=== PATIENT | male | born 1960 | race Caucasian/White ===

== ENCOUNTER → 2023-10-25 07:32 | Outpatient (REF) | payer BC, SELFPAY ==
[2023-10-25 08:52] LABS: % Basophils 0.4 % (0-2); % Eosinophils 0.7 % (0-6); % Immature Granulocytes 0.4 % (0-0.5); % Lymphocytes 30.5 % (20.5-51.1); % Monocytes 11.9 % (1.7-9.3); % Neutrophils 56.1 % (42.2-75.2); Absolute Eosinophils 0.1 10^3/uL (0-0.7); Absolute Lymphocytes 2.3 10^3/uL (1.2-3.4); Absolute Monocytes 0.9 10^3/uL (0.1-0.6); Absolute Neutrophils 4.2 10^3/uL (1.4-6.5); Hematocrit 38.8 % (39.0-52.0); Hemoglobin 13.9 g/dL (13.0-18.0); Mean Corp Hgb Conc. 35.8 g/dL (33.0-37.0); Mean Corpuscular Hgb 31.9 pg (27.0-31.0); Mean Platelet Volume 9.2 fL (7.4-10.4); Nucleated Red Blood Cells % 0 % (-); Platelet Count 254 10^3/uL (130-400); Red Blood Cell Count 4.36 10^6/uL (4.70-6.10); White Blood Cell Count 7.5 10^3/uL (4.8-10.8)
[2023-10-25 09:00] LABS: ALT (SGPT) 71 U/L (0-50); AST (SGOT) 52 U/L (17-59); Albumin 4.7 g/dl (3.5-5.0); Alkaline Phosphatase 82 U/L (38-126); Blood Urea Nitrogen 21 mg/dl (9-20); Calcium 9.1 mg/dl (8.4-10.2); Carbon Dioxide 27 mmol/L (22-30); Chloride 103 mmol/L (98-107); Creatine Phosphokinase 157 U/L (55-170); Glucose 98 mg/dl (70-99); HDL Cholesterol 58 mg/dl; LDL Cholesterol, Calculated 101 mg/dl; Potassium 4.2 mmol/L (3.5-5.1); Sodium 136 mmol/L (135-145); Total Bilirubin 1.3 mg/dl (0.2-1.3); Total Cholesterol 179 mg/dl (50-199); Total Protein 6.9 g/dl (6.3-8.2); Triglyceride 101 mg/dl (10-149); Very Low Density Lipoprotein 20 mg/dl (0-30); eGFR > 60.00
[2023-10-25 09:09] LABS: Erythrocyte Sed Rate 8 mm/hour (0-20)
[2023-10-25 10:04] LABS: C-Reactive Protein < 5.00 mg/L (0.0-10.00)
[2023-10-25 10:37] LABS: PSA, Total - Screen 1.14 ng/ml (0.0-4.0)
[2023-10-25 10:56] LABS: Vitamin B12 230 pg/ml (239-931)
== END ==
LOC: REG 07:32
PROVIDERS: ATTENDING PHYSICIAN Family Medicine
DX: I10 Essential (primary) hypertension (principal); E53.8 Deficiency of other specified B group vitamins; Z12.5 Encounter for screening for malignant neoplasm of prostate; I73.00 Raynaud's syndrome without gangrene; K58.0 Irritable bowel syndrome with diarrhea
CPT/HCPCS: 36415; 80053; 80061; 82550; 82607; 85025; 85652; 86140; G0103

== ENCOUNTER → 2024-01-25 06:55 | Outpatient (REF) | payer BC, SELFPAY ==
[2024-01-25 09:51] LABS: Vitamin B12 413 pg/ml (239-931)
== END ==
LOC: REG 06:55
PROVIDERS: ATTENDING PHYSICIAN Family Medicine
DX: E53.8 Deficiency of other specified B group vitamins (principal)
CPT/HCPCS: 36415; 82607

== ENCOUNTER → 2024-02-04 07:47 | Outpatient (REF) | payer BC, SELFPAY ==
[2024-02-04 08:37] LABS: % Basophils 0.3 % (0-2); % Eosinophils 0.9 % (0-6); % Immature Granulocytes 0.3 % (0-0.5); % Lymphocytes 26.3 % (20.5-51.1); % Monocytes 10.3 % (1.7-9.3); % Neutrophils 61.9 % (42.2-75.2); Absolute Eosinophils 0.1 10^3/uL (0-0.7); Absolute Lymphocytes 2.7 10^3/uL (1.2-3.4); Absolute Monocytes 1.1 10^3/uL (0.1-0.6); Absolute Neutrophils 6.4 10^3/uL (1.4-6.5); Hematocrit 41.8 % (39.0-52.0); Hemoglobin 14.6 g/dL (13.0-18.0); Mean Corp Hgb Conc. 34.9 g/dL (33.0-37.0); Mean Corpuscular Hgb 31.8 pg (27.0-31.0); Mean Corpuscular Volume 91.1 fL (80.0-94.0); Mean Platelet Volume 9.5 fL (7.4-10.4); Nucleated Red Blood Cells % 0 % (-); Platelet Count 283 10^3/uL (130-400); Red Blood Cell Count 4.59 10^6/uL (4.70-6.10); Red Cell Dist. Width 12.3 % (11.5-14.5); White Blood Cell Count 10.4 10^3/uL (4.8-10.8)
[2024-02-04 09:20] LABS: Erythrocyte Sed Rate 10 mm/hour (0-20)
[2024-02-04 09:59] LABS: ALT (SGPT) 63 U/L (0-50); AST (SGOT) 46 U/L (17-59); Albumin 5.2 g/dl (3.5-5.0); Alkaline Phosphatase 88 U/L (38-126); Blood Urea Nitrogen 19 mg/dl (9-20); Calcium 9.7 mg/dl (8.4-10.2); Carbon Dioxide 24 mmol/L (22-30); Chloride 103 mmol/L (98-107); Glucose 95 mg/dl (70-99); Potassium 4.2 mmol/L (3.5-5.1); Sodium 140 mmol/L (135-145); Total Bilirubin 0.6 mg/dl (0.2-1.3); Total Protein 7.8 g/dl (6.3-8.2); eGFR > 60.00
[2024-02-04 10:04] LABS: Free T4 1.22 ng/dl (0.78-2.19)
== END ==
LOC: REG 07:47
PROVIDERS: ATTENDING PHYSICIAN Family Medicine
DX: K58.9 Irritable bowel syndrome, unspecified (principal); R63.4 Abnormal weight loss
CPT/HCPCS: 36415; 80053; 84439; 85025; 85652; 86618

== ENCOUNTER → 2024-03-06 07:19 | Outpatient (REF) | payer BC, SELFPAY ==
[2024-03-06 09:33] LABS: ALT (SGPT) 64 U/L (0-50); AST (SGOT) 50 U/L (17-59); Albumin 5.4 g/dl (3.5-5.0); Alkaline Phosphatase 86 U/L (38-126); Creatine Phosphokinase 98 U/L (55-170); Direct Bilirubin 0.4 mg/dl (0.0-0.4); Iron 118 ug/dl (49-181); Total Bilirubin 0.9 mg/dl (0.2-1.3); Total Protein 7.7 g/dl (6.3-8.2)
[2024-03-06 09:42] LABS: Percent Saturation 34 % (20-50); Total Iron Binding Capacity 342 ug/dl (261-462)
[2024-03-06 10:15] LABS: IgA 261 mg/dl (70-400)
[2024-03-06 11:06] LABS: TSH Reflex To Free T4 2.44 uIU/ml (0.47-4.68)
[2024-03-06 11:25] LABS: Vitamin B12 474 pg/ml (239-931)
[2024-03-06 19:37] LABS: Hepatitis B Surface Antigen Negative (Negative)
[2024-03-07 13:51] LABS: Ceruloplasmin 24 mg/dL (15-30)
[2024-03-07 23:21] LABS: Gastrin 18 pg/mL (0-100)
[2024-03-08 02:49] LABS: ANA, IgG Reflex to HEp-2 None Detected (None Detected)
[2024-03-08 03:56] LABS: F-Actin Antibody IgG 3 Units (0-19); Mitochondrial M2 Ab, IgG 27.2 Units (0.0-24.9)
[2024-03-08 11:44] LABS: tTG IgA Antibody 5.1 EU/ml (0-19)
[2024-03-08 14:54] LABS: Endomysial IgA Antibody Titer <1:10 (<1:10)
[2024-03-09 02:23] LABS: Gastric Parietal Cell Ab, IgG 1.7 Units (0.0-24.9)
[2024-03-09 05:14] LABS: Fat, Fecal - Neutral Normal (Normal); Fat, Fecal - Split Normal (Normal)
== END ==
LOC: REG 07:19
PROVIDERS: ATTENDING PHYSICIAN Specialist; FAMILY PHYSICIAN Family Medicine
DX: E53.8 Deficiency of other specified B group vitamins (principal)
CPT/HCPCS: 36415; 80076; 82390; 82550; 82607; 82705; 82728; 82784; 82941; 83516; 83540; 83550; 84443; 86015; 86038; 86231; 86381; 87340

== ENCOUNTER → 2024-03-10 12:41 | Outpatient (REF) | payer BC, SELFPAY | LOC: RAD 12:41 | PROVIDERS: ATTENDING PHYSICIAN Specialist; FAMILY PHYSICIAN Family Medicine | DX: R63.4 Abnormal weight loss (principal); R19.7 Diarrhea, unspecified | CPT/HCPCS: 74177; Q9967 ==

== ENCOUNTER → 2024-05-17 07:29 | Outpatient (REF) | payer BC, SELFPAY ==
[2024-05-17 08:17] LABS: Erythrocyte Sed Rate 9 mm/hour (0-20)
[2024-05-17 08:32] LABS: ALT (SGPT) 62 U/L (0-50); AST (SGOT) 40 U/L (17-59); Albumin 4.7 g/dl (3.5-5.0); Alkaline Phosphatase 77 U/L (38-126); Direct Bilirubin 0.2 mg/dl (0.0-0.4); Total Bilirubin 0.7 mg/dl (0.2-1.3); Total Protein 6.8 g/dl (6.3-8.2)
[2024-05-17 08:41] LABS: C-Reactive Protein < 5.00 mg/L (0.0-10.00)
[2024-05-17 09:30] LABS: Vitamin B12 633 pg/ml (239-931)
== END ==
LOC: REG 07:29
PROVIDERS: ATTENDING PHYSICIAN Specialist; FAMILY PHYSICIAN Family Medicine
DX: E53.8 Deficiency of other specified B group vitamins (principal)
CPT/HCPCS: 36415; 80076; 82607; 85652; 86140

== ENCOUNTER → 2024-06-16 12:02 | Outpatient (REF) | payer BC, SELFPAY | LOC: MRI 3T 12:02 | PROVIDERS: ATTENDING PHYSICIAN Specialist; FAMILY PHYSICIAN Family Medicine | DX: R10.31 Right lower quadrant pain (principal) | CPT/HCPCS: 72197; 74183; A9585 ==

== ENCOUNTER → 2024-07-28 06:22 | Day surgery (SDC) | payer BC, SELFPAY | LOC: GI 06:22 | PROVIDERS: ATTENDING PHYSICIAN Specialist | DX: K63.89 Other specified diseases of intestine (principal); K57.30 Diverticulosis of large intestine without perforation or abscess without bleeding; R19.7 Diarrhea, unspecified; R93.3 Abnormal findings on diagnostic imaging of other parts of digestive tract | CPT/HCPCS: 45380; 88305 ==

== ENCOUNTER → 2024-08-21 09:28 | Outpatient (REF) | payer BC, SELFPAY ==
[2024-08-21 10:21] LABS: % Basophils 0.2 % (0-2); % Eosinophils 0.7 % (0-6); % Immature Granulocytes 0.3 % (0-0.5); % Lymphocytes 22.3 % (20.5-51.1); % Monocytes 10.1 % (1.7-9.3); % Neutrophils 66.4 % (42.2-75.2); Absolute Eosinophils 0.1 10^3/uL (0-0.7); Absolute Monocytes 0.9 10^3/uL (0.1-0.6); Absolute Neutrophils 5.8 10^3/uL (1.4-6.5); Hematocrit 43.7 % (39.0-52.0); Hemoglobin 15.5 g/dL (13.0-18.0); Mean Corp Hgb Conc. 35.5 g/dL (33.0-37.0); Mean Corpuscular Hgb 31.6 pg (27.0-31.0); Mean Platelet Volume 9.3 fL (7.4-10.4); Nucleated Red Blood Cells % 0 % (-); Platelet Count 252 10^3/uL (130-400); Red Blood Cell Count 4.91 10^6/uL (4.70-6.10); White Blood Cell Count 8.8 10^3/uL (4.8-10.8)
[2024-08-21 10:49] LABS: ALT (SGPT) 72 U/L (0-50); AST (SGOT) 49 U/L (17-59); Alkaline Phosphatase 74 U/L (38-126); Blood Urea Nitrogen 19 mg/dl (9-20); Calcium 9.6 mg/dl (8.4-10.2); Carbon Dioxide 26 mmol/L (22-30); Chloride 99 mmol/L (98-107); Glucose 100 mg/dl (70-99); Potassium 4.6 mmol/L (3.5-5.1); Sodium 136 mmol/L (135-145); Total Protein 7.3 g/dl (6.3-8.2); eGFR > 60.00
[2024-08-21 11:37] LABS: Vitamin B12 701 pg/ml (239-931)
[2024-08-23 21:33] LABS: Fat, Fecal - Neutral Normal (Normal); Fat, Fecal - Split Increased (Normal)
[2024-08-24 01:53] LABS: H. pylori Antigen, Fecal Negative (Negative)
== END ==
LOC: REG 09:28
PROVIDERS: ATTENDING PHYSICIAN Specialist; FAMILY PHYSICIAN Family Medicine
DX: K58.0 Irritable bowel syndrome with diarrhea (principal); E53.8 Deficiency of other specified B group vitamins; R19.7 Diarrhea, unspecified; Z86.19 Personal history of other infectious and parasitic diseases
CPT/HCPCS: 36415; 80053; 82607; 82653; 82705; 85025; 87338

== ENCOUNTER → 2024-11-17 06:58 | Outpatient (REF) | payer BC, SELFPAY ==
[2024-11-17 08:26] LABS: % Basophils 0.3 % (0-2); % Eosinophils 0.8 % (0-6); % Immature Granulocytes 0.3 % (0-0.5); % Lymphocytes 31.7 % (20.5-51.1); % Monocytes 9.7 % (1.7-9.3); % Neutrophils 57.2 % (42.2-75.2); Absolute Eosinophils 0.1 10^3/uL (0-0.7); Absolute Lymphocytes 2.4 10^3/uL (1.2-3.4); Absolute Monocytes 0.7 10^3/uL (0.1-0.6); Absolute Neutrophils 4.4 10^3/uL (1.4-6.5); Hematocrit 41.7 % (39.0-52.0); Hemoglobin 14.8 g/dL (13.0-18.0); Mean Corp Hgb Conc. 35.5 g/dL (33.0-37.0); Mean Corpuscular Volume 90.1 fL (80.0-94.0); Mean Platelet Volume 9.6 fL (7.4-10.4); Nucleated Red Blood Cells % 0 % (-); Platelet Count 251 10^3/uL (130-400); Red Blood Cell Count 4.63 10^6/uL (4.70-6.10); Red Cell Dist. Width 12.1 % (11.5-14.5); White Blood Cell Count 7.6 10^3/uL (4.8-10.8)
[2024-11-17 09:46] LABS: ALT (SGPT) 78 U/L (0-50); AST (SGOT) 45 U/L (17-59); Alkaline Phosphatase 75 U/L (38-126); Blood Urea Nitrogen 22 mg/dl (9-20); Calcium 9.7 mg/dl (8.4-10.2); Carbon Dioxide 25 mmol/L (22-30); Chloride 105 mmol/L (98-107); Direct Bilirubin 0.3 mg/dl (0.0-0.4); Glucose 94 mg/dl (70-99); Iron 190 ug/dl (49-181); Potassium 4.1 mmol/L (3.5-5.1); Sodium 142 mmol/L (135-145); Total Bilirubin 1.3 mg/dl (0.2-1.3); Total Protein 7.5 g/dl (6.3-8.2); eGFR > 60.00
[2024-11-17 09:55] LABS: Percent Saturation 62 % (20-50); Total Iron Binding Capacity 304 ug/dl (261-462)
[2024-11-17 10:44] LABS: Folate 12.2 ng/ml (2.76-20); Vitamin B12 650 pg/ml (239-931)
[2024-11-18 23:32] LABS: Mitochondrial M2 Ab, IgG 27.6 Units (0.0-24.9)
[2024-11-19 02:41] LABS: tTG IgA Antibody <1.02 FLU (0.00-4.99)
[2024-11-19 02:52] LABS: ANA, IgG Reflex to HEp-2 None Detected (None Detected)
[2024-11-19 21:06] LABS: Endomysial IgA Antibody Titer <1:10 (<1:10)
[2024-11-20 00:33] LABS: IgA 249 mg/dl (70-400)
== END ==
LOC: REG 06:58
PROVIDERS: ATTENDING PHYSICIAN Specialist; FAMILY PHYSICIAN Family Medicine
DX: R93.5 Abnormal findings on diagnostic imaging of other abdominal regions, including retroperitoneum (principal)
CPT/HCPCS: 36415; 80053; 82248; 82607; 82728; 82746; 82784; 83516; 83540; 83550; 85025; 86038; 86231; 86381

== ENCOUNTER → 2024-11-28 08:49 | Outpatient (REF) | payer BC, SELFPAY | LOC: MRI 3T 08:49 | PROVIDERS: ATTENDING PHYSICIAN Specialist; PRIMARYCARE PHYSICIAN Family Medicine | DX: R93.5 Abnormal findings on diagnostic imaging of other abdominal regions, including retroperitoneum (principal); E83.19 Other disorders of iron metabolism | CPT/HCPCS: 36415; 72197; 74183; 81256; A9575 ==

== ENCOUNTER → 2025-02-28 06:32 | Outpatient (REF) | payer BC, SELFPAY ==
[2025-02-28 08:08] LABS: ALT (SGPT) 57 U/L (0-50); AST (SGOT) 36 U/L (17-59); Albumin 4.6 g/dl (3.5-5.0); Alkaline Phosphatase 68 U/L (38-126); Iron 72 ug/dl (49-181); Total Protein 6.7 g/dl (6.3-8.2)
[2025-02-28 08:17] LABS: Total Iron Binding Capacity 294 ug/dl (261-462)
[2025-02-28 08:42] LABS: Ferritin 186.0 ng/ml (17.9-464.0)
== END ==
LOC: RAD 06:32
PROVIDERS: ATTENDING PHYSICIAN Specialist; FAMILY PHYSICIAN Family Medicine
DX: K59.39 Other megacolon (principal); R79.89 Other specified abnormal findings of blood chemistry
CPT/HCPCS: 36415; 74019; 80076; 82728; 83540; 83550

== ENCOUNTER 2025-06-29 06:19 | Day surgery (SDC) | payer OTHER, SELFPAY | END 2025-06-29 11:22 | disposition home or self-care (01) | LOC: GI 06:19 | PROVIDERS: ATTENDING PHYSICIAN Specialist | DX: R10.9 Unspecified abdominal pain (principal); R19.7 Diarrhea, unspecified; K31.89 Other diseases of stomach and duodenum; K29.50 Unspecified chronic gastritis without bleeding | CPT/HCPCS: 44361; 88305; 88342 ==

== ENCOUNTER → 2025-06-29 08:26 | Outpatient (REF) | payer OTHER, SELFPAY ==
[2025-06-29 09:40] LABS: Hematocrit 42.9 % (39.0-52.0); Hemoglobin 15.1 g/dL (13.0-18.0); Mean Corp Hgb Conc. 35.2 g/dL (33.0-37.0); Mean Corpuscular Volume 89.4 fL (80.0-94.0); Nucleated Red Blood Cells % 0 % (-); Platelet Count 286 10^3/uL (130-400); Red Cell Dist. Width 12.1 % (11.5-14.5)
[2025-06-29 10:16] LABS: ALT (SGPT) 75 U/L (0-50); AST (SGOT) 46 U/L (17-59); Albumin 5.0 g/dl (3.5-5.0); Alkaline Phosphatase 75 U/L (38-126); Blood Urea Nitrogen 17 mg/dl (9-20); Calcium 9.5 mg/dl (8.4-10.2); Carbon Dioxide 29 mmol/L (22-30); Chloride 100 mmol/L (98-107); Glucose 102 mg/dl (70-99); HDL Cholesterol 55 mg/dl; LDL Cholesterol, Calculated 96 mg/dl; Potassium 4.3 mmol/L (3.5-5.1); Sodium 136 mmol/L (135-145); Total Protein 7.7 g/dl (6.3-8.2); Very Low Density Lipoprotein 29 mg/dl (0-30); eGFR > 60.00
[2025-06-29 10:47] LABS: PSA, Total - Screen 1.04 ng/ml (0.0-4.0)
== END ==
LOC: REG 08:26
PROVIDERS: FAMILY PHYSICIAN Family Medicine
DX: I10 Essential (primary) hypertension (principal); K63.8219 Small intestinal bacterial overgrowth, unspecified; K51.90 Ulcerative colitis, unspecified, without complications
CPT/HCPCS: 36415; 80053; 80061; 85025; G0103

== ENCOUNTER → 2025-08-02 07:19 | Outpatient (REF) | payer OTHER, SELFPAY | LOC: REG 07:19 | PROVIDERS: ATTENDING PHYSICIAN Specialist; FAMILY PHYSICIAN Family Medicine | DX: K52.9 Noninfective gastroenteritis and colitis, unspecified (principal) | CPT/HCPCS: 36415; 82784; 83516; 86231; 87389 ==